=== PATIENT | male | born 1995 | race African-American/Black ===

== ENCOUNTER 2024-04-19 07:21 | Emergency (ER) | payer OTHER ==
[~2024-04-19] VITALS: Ht 185.4 cm; Wt 108.9 kg
[~2024-04-19 07:21] MED LIST: AMOXICILLIN500 MG PO; CIPROFLOXACIN500 MG PO; CYCLOBENZAPRINE10 MG PO; NAPROSYN500 MG PO; NORCO 325 MG-51 TAB PO; PEN-V500 MG PO; PREDNISONE50 MG PO; TYLENOL W/CODEI1 TA2 PO; ZITHROMAX Z PA250 MG PO
[2024-04-19] MEDS ORDERED: IBUPROFEN 400 MG TAB PO ONE (07:55)
[2024-04-19] MEDS ORDERED: VOLTAREN ARTHRI20 GM T (08:30)
[2024-04-19] MEDS ORDERED: ASPERCREME LID1 EACH T (08:30)
== END 2024-04-19 08:30 | disposition home or self-care (01) ==
LOC: ED 07:21
DX: M25.511 Pain in right shoulder (principal); Z88.6 Allergy status to analgesic agent; Z98.890 Other specified postprocedural states

== ENCOUNTER 2025-01-03 10:16 | Emergency (ER) | payer SELFPAY ==
[~2025-01-03] VITALS: Ht 185.4 cm; Wt 106.6 kg
[~2025-01-03 10:16] MED LIST changes: +ASPERCREME LID1 EACH T; +VOLTAREN ARTHRI20 GM T
[2025-01-03] MEDS ORDERED: AMOX-CLAV 875-1 EACH PO (11:08)
== END 2025-01-03 11:08 | disposition home or self-care (01) ==
LOC: ED 10:16
DX: H66.92 Otitis media, unspecified, left ear (principal); Z79.899 Other long term (current) drug therapy; Z88.6 Allergy status to analgesic agent; Z98.890 Other specified postprocedural states